=== PATIENT | female | born 1965 | race Two or more races ===

== ENCOUNTER 2025-03-04 05:01 | Emergency (ER) | payer OTHER, SELFPAY ==
[2025-03-04 05:01] VITALS: BP 102/50; PULSE 70; RESP 18; TEMP 36.7; O2SAT 98; BMI 30.2
--- NOTE | 2025-03-04 05:25 | XR_ITS ---
Examination: Toes, left great toe Technique: Toes AP oblique lateral 3 views Date and time of exam: 03/04/2025, 5:29 a.m. COMPARISON: None FINDINGS: No acute fracture or dislocation. Joint spaces are well-maintained throughout the visualized left foot. Os navicular noted. Soft tissue swelling of the great toe appears to be present. No radiodense foreign body or subcutaneous emphysema. IMPRESSION: No acute fracture or dislocation at the left great toe or elsewhere throughout the left foot as visualized.
--- NOTE | 2025-03-04 05:25 | PD.EDRME ---
Rapid Medical Screening Exam E Arrival date/time: 03/04/25 05:01 Chief Complaint: Ankle/Foot Injury Vital signs: Vital Signs Temperature 98.0 F 03/04/25 05:01 Pulse Rate 70 03/04/25 05:01 Respiratory Rate 18 03/04/25 05:01 Blood Pressure 102/50 L 03/04/25 05:01 Pulse Oximetry (%) 98 03/04/25 05:01 Oxygen Delivery Method Room Air 03/04/25 05:01 E Narrative: Stubbed left great toe this morning in garage, c/o pain Exam: left great toe ttp Clinical Impression: toe pain
[2025-03-04] MEDS: IBUPROFEN TAB 600 MG TABLET PO (05:31)
--- NOTE | 2025-03-04 06:36 | EDNOTE_ITS ---
<Statement entered by Lizz Parnell MD - 03/05/25 16:16> I, Lizz Parnell MD, have reviewed the history, exam, and assessment of the patient. I have evaluated the patient independently and agree with the plan of care documented by [ ]. All diagnostic studies were reviewed and discussed. I confirm the diagnosis as documented by the Resident. I was present during the Medical Decision Making for this patient. The patient's plan of care was created between myself and the Resident and consistent with our discussion of the patient's case. Lower Extremity Injury RME/HPI General Chief Complaint: Ankle/Foot Injury Stated Complaint: LEFT GREAT TOE PAIN Time Seen by Provider: 03/04/25 05:47 Arrival date/time: 03/04/25 05:01 RME / HPI RME / HPI Narrative: Patient is a 59 year old female with a past medical history of anxiety who is on doxazosin and escitalopam [facility] who presented to the emergency room with chief complain of right toe pain. Patient stated she stabbed her toe at home while putting halloween items away. Patient denied dizziness or syncope event. Patient is following with a neurologist as she just had a nerve conduction study. Pain 7/10 after ibuprofen but patient typically leaves at a pain level of 5/10. Exam: left great toe ttp Impression: toe pain Related Data Previous Rx's ?Medication ?Instructions ?Recorded naproxen 250 mg tablet 250 mg PO BID PRN pain 5 day s #10 03/04/25 tabs Allergies Allergy/AdvReac Type Severity Reaction Status Date / Time No Known Allergies Allergy Verified 03/04/25 05:04 Review of Systems Review of Systems Narrative Review of Systems: General appearance: NO weight change, NO fatigue, NO weakness, NO fever, NO chills, NO night sweats, No cough, 1st digit toe pain Skin: NO rash, NO itching, NO sores, NO moles HEENT: NO Trauma, NO nausea, NO vomiting, NO visual changes, NO blurry vision, NO double vision, NO tinnitus, NO vertigo, NO ear discharge, NO rhinorrhea, NO stuffiness, NO sneezing, NO allergy, NO epistaxis. NO Hoarseness, NO sore throat, NO swollen neck. Cardiac: NO Palpitations, NO dyspnea on exertion, NO orthopnea, NO paroxysmal nocturnal dyspnea, NO edema Respiratory: NO Shortness of Breath, NO Wheezing, NO Cough, NO Sputum, NO hemoptysis GI:NO appetite, NO nausea, NO vomiting, NO dysphagia, NO changes in bowel frequency, NO stool color, NO diarrhea, NO constipation, NO hemetemesis, NO hemorrhoids, NO melena, NO hematechezia, NO abdominal pain, NO jaundice Renal: NO frequency, NO hesitancy, NO urgency, NO hematuria, NO nocturia, NO incontinence MSK: NO muscle weakness, NO gout, NO arthritis, NO muscle stiffness Neuro: NO headaches, NO tremors, NO weakness, NO paralysis, NO seizures, NO loss of consciousness, NO numbness. Hem: NO anemia, NO easy bruising/bleeding, NO petechiae, NO purpura Endo: NO heat/cold intolerance, NO excessive sweating, NO polyuria, NO polydipsia, NO polyphagia, NO thyroid problems, NO diabetes Pysch: NO mood, NO anxiety, NO depression ED Exam Narrative Physical exam: General Appearance: Alert & Oriented X3, well-nourished female who is lying in bed in no acute distress. Tenderness anterior ankle NO tenderness at malleous region of ankle. No open wounds. HEENT: Skull symmetrical and atraumatic. Conjunctivae pink and moist. Pupils equal, round, reactive to light and accommodation (PERRL). External ear without lesion or discharge. Straight, nares patient, mucosa pink, no discharge. No thyroid nodule appreciated. No cervical lymphadenopathy. Cardio: Normal Rate and Rhythm with S1 and S2 heart sounds. No murmurs or extra heart sounds auscultated. No bruits on carotid auscultation. No peripheral edema or cyanosis. Lungs: Symmetric with good expansion. Chest and back non-tender. Breath sounds vesicular without crackles, wheezing or rhonchi Abdomen: Non-tender, Non-distended, Normal Reactive Bowel Sounds Neuro: Alert, cooperative, oriented to person, place, and time. Speech clear. CN grossly intact. Upper motor strength 5/5 and Lower motor strength 5/5. Sensation intact. Course Quality Measures none Orders Category Date Time Status XR toe LT min 2V Stat Exams 03/04/25 05:25 Taken Ibuprofen Tab [Motrin Tab] Med 03/04/25 05:25 Discontinued 600 mg PO X1 ONE Vital Signs Vital signs: Vital Signs Temperature 98.0 F 03/04/25 05:01 Pulse Rate 70 03/04/25 05:01 Respiratory Rate 18 03/04/25 05:01 Blood Pressure 102/50 L 03/04/25 05:01 Pulse Oximetry (%) 98 03/04/25 05:01 Oxygen Delivery Method Room Air 03/04/25 05:01 Extremity Injury, Lower Patient data External records reviewed:: [facility] previous records Clinical information provided by:: patient Social determinants that could affect healthcare access:: none Patient has the following chronic illnesses:: History of anxiety How is presenting disease/condition affected by chronic disease/condition?: uneffected by Evaluation data The following diagnostics were reviewed and interpreted by me:: lab results and radiology exam(s) Lab and/or radiology exams considered but not ordered:: none Interpretation Summary: No fractures. Medications / Prescriptions Medications or Prescriptions considered but not ordered:: none Medication administrations:: Medication Administration History Discontinued Medications Ibuprofen (Ibuprofen Tab 600 Mg Tablet) 600 mg PO X1 ONE Stop: 03/04/25 05:26 Last Admin: 03/04/25 05:31 Dose: 600 mg Documented By: PIPE Same as above Consultations Consultation(s) initiated? (list below): No Consultation #1 (Physician, Specialty, Details): None Diagnosis Extremity Injury, Lower Differential Diagnosis: ankle sprain and strain, fracture of toe and other Most likely diagnosis given after review of the tests above:: Pain in right toe-no fracture Admission Indicated Admission indicated?: not indicated Admission Request Was there a request for admission?: No Disposition Plan Disposition Plan: Discharge Discharge Attestation Discharge Attestation: The patient and all family members were given an opportunity to ask questions and understood the discharge instructions. Discharge instructions specifically effects, indications for sooner follow up or return to the emergency department, and the expected course of current diagnosis. Patient condition: Stable Discharge Plan Plan Patient Disposition: HOME (Self Care) Patient condition on transfer: Stable Health Concerns: Instructions: -Please take Naproxen 25 mg orally twice daily for ankle pain as NEEDED. -Please [facility] with [facility]-3 days to follow up on your ankle sprain -if ankle swelling increases or pain is worsening please seek immediate medical attention -Please follow up with your primary care provider within one week of discharge -If your symptoms worsen,please seek immediate medical attention and return to your nearest emergency room -If you do not have a primary care provider, you may follow up at the [facility] at [address], [place] [address], Prescriptions/Referrals Prescriptions/Med Rec: New naproxen 250 mg tablet 250 mg PO BID PRN (Reason: pain) 5 Days Qty: 10 0RF Referrals: Myla Morales MD [Primary Care Provider] - In 1 week Problem List Clinical Impression: Ankle sprain and strain, Great toe pain Patient/Caregiver Discharge Instructions Discharge Activity: activity as tolerated Print Language: Beninese Stand Alone Forms: Piedad Award Info., Patient Portal Info Letter
== END 2025-03-04 06:39 | disposition home or self-care (01) ==
PROVIDERS: Emergency Provider Emergency Medicine; PCP Internal Medicine
DX: S93.502A Unspecified sprain of left great toe, initial encounter (principal); W22.8XXA Striking against or struck by other objects, initial encounter
CPT/HCPCS: 73660; 99282; A9270